=== PATIENT | female | born 1950 | race Caucasian/White ===

== ENCOUNTER → 2017-01-13 12:37 | Emergency (ER) | payer OTHER ==
--- NOTE | ~2017-01-13 | CR150 ---
[facility] A Service of [facility] & [facility] RADIOLOGY TEXT RESULTS PATIENT: DIANA MENA LOCATION: [facility] : 51 UNIT #: [id number] AGE: [address]: Betty Montemayor APRN SEX: F ORDER DR: [id number] [facility] [address] [place], [place] [address] [id number] E MR#: [id number] Acc #: [id number] NAME: DIANA MENA. : 1950 SEX: F STUDY DATE/TIME: 01/13/2017 11:44 UNIT: [facility] ROOM: STUDY DESCRIPTION: CR Hip Min 2 Views Lt Attending Physician: Betty Montemayor A.P.R.N. Ordering Physician: Ed Yahir Singh M.D. Primary Care Physician: Paulina Goodson M.D. MEDICAL IMAGING REPORT This report is preliminary unless electronic signature is present EXAM Left hip, [address] abdomen and pelvis dated 02/12/2006 and radiographs of the left hip dated 05/27/2010. INDICATION 66-year-old female with left hip pain for 1 year. FINDINGS There is levoscoliosis of the lower lumbar spine. The severe degenerative disc disease and endplate sclerosis at multiple levels of the lower lumbar spine. There appears to be bulky degenerative facet disease at L5-S1. There is mild degenerative change at the pubic symphysis. There are bilateral tubal ligation clips. There is calcification in the right upper quadrant of the abdomen, possibly within the gallbladder or within the right kidney. Left hip is anatomically aligned. There is no evidence of acute fracture or significant degenerative change of the left hip. IMPRESSION 1. No acute fracture, dislocation or significant degenerative change of the left hip. 2. Levoscoliosis of the lumbar spine with severe degenerative endplate change and bulky degenerative facet disease at multiple levels. Correlation for the possibility of radicular pain to the left hip is recommended. Dictated by... Juan Luis Church M.D. THIS IS AN ELECTRONICALLY VERIFIED REPORT [facility] A Service of [facility] & [facility] RADIOLOGY TEXT RESULTS PATIENT: DIANA MENA LOCATION: [facility] : 51 UNIT #: [id number] AGE: [address]: Betty Montemayor APRN SEX: F ORDER DR: Juan Luis Church M.D. at 01/16/2017 12:59 AM ELIZABETH/annalise TD: 01/13/2017 22:55 JOB #: [id number] MEDICAL IMAGING REPORT Page 1 of 1 COPY
== END | disposition home or self-care (01) ==
LOC: CFTX 12:37
DX: M25.552 Pain in left hip (principal); F41.9 Anxiety disorder, unspecified; I10 Essential (primary) hypertension; J44.9 Chronic obstructive pulmonary disease, unspecified; F17.210 Nicotine dependence, cigarettes, uncomplicated; Z98.51 Tubal ligation status
CPT/HCPCS: 73502; 99283

== ENCOUNTER → 2017-01-13 | Outpatient (CLI) | payer OTHER ==
[~2017-01-13] MED LIST: ALBUTEROL17 GM INH; BENZONATATE PO; CHANTIX PO; CLONIDINE HCL0.1 MG PO; DICLOFENAC PO; ERYTHROMYCIN B500 MG PO; FLEXERIL10 M1 PO; LISINOPRIL PO; PAXIL PO; PAXIL40 MG PO; PREDNISONE PO; ULTRAM PO; VICODIN 5/500 T1 TAB PO
--- NOTE | ~2017-01-13 | MR113 ---
[facility] A Service of [facility] & [facility] RADIOLOGY TEXT RESULTS PATIENT: DIANA MENA LOCATION: [facility] : 51 UNIT #: [id number] AGE: [address]: Paulina Goodson MD SEX: F ORDER DR: [id number] [facility] [address] [place], [place] [address] [id number] O MR#: [id number] Acc #: [id number] NAME: DIANA MENA : 1950 SEX: F STUDY DATE/TIME: 01/13/2017 13:06 UNIT: [facility] ROOM: STUDY DESCRIPTION: MR Lumbar Wo Contrast Attending Physician: Paulina Goodson M.D. Referring Physician: Paulina Goodson M.D. Ordering Physician: Physician Non-Staff Primary Care Physician: Paulina Goodson M.D. MRI CENTER REPORT This report is preliminary unless electronic signature is present. EXAM MRI of the lumbar spine without contrast sheath 01/13/2017 COMPARISON None. HISTORY Chronic low back pain and right leg for several years, constant pain. No history of prior surgery. FINDINGS Multisequence, multiplanar imaging of the lumbar spine was obtained without contrast. There is mild levoscoliosis of the lumbar spine with the apex at L3-4. Isaacs angle measured from the superior endplate of L2 to the inferior endplate of L4 is 12 degrees. Disc osteophyte complex are at multiple levels. There is retrolisthesis of L5 with respect of 4 by 8 mm. Large spur is noted in the posterosuperior aspect of L5. Edematous endplate changes are noted at multiple levels, worst at T12-L1. It is seen throughout the lumbar spine. Conus terminates at L2. Signal of conus and cauda equina are unremarkable. Distal to the thecal sac and to the right there is an increased T2-signal lesion measuring 1.3 cm in height at the level of S2-3. Smaller nearby similar signal lesions are also seen with decreased T1 and increased T2. They are incompletely evaluated without contrast. No obvious pars defects. Degenerative changes are also seen in the visualized lower thoracic spine. Significant motion artifact is seen in axial sequences. Axial T2 was repeated but it is also nondiagnostic. An attempt has been made to characterize the degenerative changes at various levels. T12-L1: Disc osteophyte complex with suspicious superimposed central to left foraminal broad-based protrusion with a small extruded component particularly in the center which has mild superior and inferior migration with a height of 1.4 cm. There is probably at least [id number] STS. [facility] A Service of [facility] / [facility] RADIOLOGY TEXT RESULTS PATIENT: DIANA MENA LOCATION: [facility] : 51 UNIT #: [id number] AGE: [address]: Paulina Goodson MD SEX: F ORDER DR: canal stenosis with moderate to severe bilateral neural foraminal narrowing, worse on the right. L1-2: Disc osteophyte complex with superimposed central to left subarticular broad-based protrusion. It is probably at least mild canal stenosis, moderate bilateral neural foraminal narrowing. L2-3: Disc osteophyte complex with mild to moderate left and mild right neural foraminal narrowing. There is probably at least mild canal stenosis. L3-4: Disc osteophyte complex with tcxlpctd-qu-znchbm right and mild left neural foraminal narrowing. It is probably moderate canal stenosis and mild bilateral lateral recess stenosis, particularly in the right. L4-5: Disc osteophyte complex with likely bilateral facet changes, severe bilateral neural foraminal narrowing, bcpc-fh-isdxotxd bilateral lateral recess stenosis. L5-S1: Disc osteophyte complex with cglxizfw-fx-yzwojq bilateral neural foraminal narrowing, mild right and moderate left facet hypertrophic change. IMPRESSION 1. Axial images are nondiagnostic. Axial T2 was repeated and it is also nondiagnostic. 2. Degenerative changes are noted throughout the lumbar spine in this patient with levoscoliosis and apex at L3-4. 3. An attempt has been made to characterize degenerative changes at various levels based on the sagittal sequences and to some extent in the axial sequences. Findings are probably worse at L2-3 to L4-5 particularly at L4-5. 4. Endplate edematous changes are noted throughout the lumbar spine, worse at T12 and T1. 5. 8 mm retrolisthesis of L5 with respect to L4, degenerative in etiology. Bilateral wgalpbss-ni-frtplx neural foraminal narrowing is seen. Correlate with appropriate radiculopathy. 6. Increased T2-signal lesions are noted outside the thecal sac and associated with the sacral nerves within the bony canal. The relatively larger one is in the mid to right paramidline aspect of the level of S2-3 segment measuring up to 1.3 cm in height. It is probably associated with S3 nerve root. 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 Without enhancement, enhancing tumors like nerve sheath tumors cannot be excluded. Dictated by... Connie Myers M.D. [facility] A Service of [facility] / [facility] RADIOLOGY TEXT RESULTS PATIENT: DIANA MENA LOCATION: [facility] : 51 UNIT #: [id number] AGE: [address]: Paulina Goodson MD SEX: F ORDER DR: THIS IS AN ELECTRONICALLY VERIFIED REPORT Connie Myers M.D. at 01/16/2017 11:16 AM GENESIS/tay TD: 01/15/2017 14:12 JOB #: [id number] MRI CENTER REPORT Page 1 of 1 COPY
== END | disposition home or self-care (01) ==
LOC: CMRI 12:41
DX: M54.41 Lumbago with sciatica, right side (principal); M47.26 Other spondylosis with radiculopathy, lumbar region; M41.9 Scoliosis, unspecified; M43.16 Spondylolisthesis, lumbar region; M51.16 Intervertebral disc disorders with radiculopathy, lumbar region
CPT/HCPCS: 72148